=== PATIENT | female | born 1955 | race Caucasian/White ===

== ENCOUNTER 2022-09-09 11:05 | Day surgery (SDC) | payer MEDICARE ==
[2022-09-09] MEDS ORDERED: Depo-Medrol 40 MG/ML IM ONE (11:06)
[2022-09-09] MEDS ORDERED: Sodium Chloride 0.9(Preservative Free) 10 ML IJ ONE (11:06)
[2022-09-09] MEDS ORDERED: DIPRIVAN 200 MG/20 ML IV ONE (13:21)
[2022-09-09] MEDS ORDERED: Xylocaine-Mpf 2% 5 Ml Vial ONE (13:23)
[2022-09-09] MEDS ORDERED: Lactated Ringers 1,000 ML IV ONE (14:35)
--- NOTE | 2022-09-09 15:20 | XRAY ---
Indication: Left L4-S1 transforaminal SARAH. Intraoperative fluoroscopy provided for 26 seconds. 5 digital spot image submitted for interpretation demonstrates posterior needle tips projecting over the expected left L4 and L5 nerve roots. Correlate with intraoperative findings/report.
--- NOTE | 2022-09-09 15:26 | XRAY ---
26 seconds of fluoroscopy was used in surgery for a left L4-S1 transforaminal SARAH.
== END 2022-09-09 13:25 | disposition home or self-care (01) ==
LOC: SDC-PAIN 11:05
PROVIDERS: ATTEND Psychiatry & Neurology Pain Medicine
DX: M54.16 Radiculopathy, lumbar region (principal); Z79.899 Other long term (current) drug therapy
CPT/HCPCS: 64483; 64484; 72100; 77003; J1030; J2704; Q9966